=== PATIENT | female | born 1960 | race Caucasian/White ===

== ENCOUNTER 2017-05-12 14:07 | Emergency (ER) | payer BC ==
[2017-05-12 14:16] VITALS: BP 135/79; BMI 25.9
[2017-05-12 15:44] LABS: BASOPHILS # (AUTO) 0.1 X10^3/uL (0.0-0.1); BASOPHILS % (AUTO) 0.9 % (0.2-1.0); EOSINOPHILS # (AUTO) 0.4 x10^3/uL (0.0-0.2); HEMATOCRIT 46.6 % (36.0-47.0); HEMOGLOBIN 16.4 g/dL (12.0-16.0); LYMPHOCYTES # (AUTO) 2.1 X10^3/uL (1.3-2.9); LYMPHOCYTES % (AUTO) 26.3 % (21.0-51.0); MEAN CORPUSCULAR HEMOGLOBIN 32.3 pg (27.0-34.0); MEAN CORPUSCULAR HGB CONC 35.3 g/dL (33.0-35.0); MEAN CORPUSCULAR VOLUME 91.5 fL (80.0-100.0); MEAN PLATELET VOLUME 7.3 fL (7.4-11.0); MONOCYTES # (AUTO) 0.7 x10^3/uL (0.3-0.8); MONOCYTES % (AUTO) 9.3 % (0.0-13.0); NEUTROPHILS # (AUTO) 4.6 x10^3/uL (2.2-4.8); NEUTROPHILS % (AUTO) 58.5 % (42.0-75.0); PLATELET COUNT 273 X10^3/uL (150.0-450.0); RED BLOOD COUNT 5.09 X10^6/uL (3.5-5.4); RED CELL DISTRIBUTION WIDTH 12.9 % (11.6-16.5); WHITE BLOOD COUNT 7.8 X10^3/uL (3.6-10.0)
--- NOTE | 2017-05-12 15:49 | DR.GENAD ---
HPI - PCP Primary Care Physician: NFD - Complaint/Symptoms Chief Complaint Doctors Comments: Patient admits to being put lisinopril for hyprtension and after taking the medication she started getting pain in right thigh. I agree with statement as stated for chief complaint. Chief Complaint:: "NEED TO BE CHECKED FOR BLOOD CLOT. PAIN INSIDE LEG/GROIN AREA ON RIGHT LEG" Self Treatment fo Chief Complaint: WENT TO [facility] - Source History Provided: Patient - Mode of Arrival Mode of Arrival: Ambulatory - Timing Onset of Chief Complaint: 05/05/17 PMH - PMH Past Medical History: Yes Past Medical History: Arthritis, Asthma, Hypertension Past Medical History Comment: I THINK I HAVE ASTHMA AND ARTHITIS Past Surgical History: Yes Surgical History: Cholecystectomy - Family History History of Family Medical Conditions: Yes Family Medical History: Sudden Cardiac Family Medical History Comment: ASTHMA - Social History Does any household member use tobacco: Yes Alcohol Use: Occasionally Do you use any recreational Drugs:: No Lives With: Spouse Lives Where: Home - infectious screening In the last 2 months have you had wt loss of >10#?: NO Have you had fever, night sweats or hemotysis?: No Have you traveled outside the country in the last 6 months?: No Isolation: Standard ROS - Review of Systems Eyes: No Symptoms Reported ENTM: No Symptoms Reported Respiratoy: No Symptoms Reported Cardiovascular: No Symptoms Reported Gastrointestinal/Abdominal: No Symptoms Reported Genitourinary: No Symptoms Reported Neurological: No Symptoms Reported Musculoskeletal: No Symptoms Reported Integumentary: No Symptoms Reported Hematologic/Lymphatic: No Symptoms Reported Endocrine: No Symptoms Reported Psychiatric: No Symptoms Reported All Other Systems: Reviewed and Negative PE - Vital Signs Vitals: Temperature 98.3 F Pulse Rate 82 Respiratory Rate 20 Blood Pressure 135/79 O2 Sat by Pulse Oximetry 98 - General Limitations: No Limitations General Appearance: Alert, In No Apparent Distress - Head Head Exam: Normal Inspection, Atraumatic - Eyes Eye exam: Normal Appearance, PERRL, EOMI - ENT ENT Exam: Normal Exam External Ear Exam: Normal External Inspection TM/Canal Exam: Bilateral Normal Nose Exam: Normal Nose Exam Mouth Exam: Normal Inspection Throat Exam: Normal Inspection - Neck Neck Exam: Normal Inspection - Chest Chest Inspection: Normal Inspection - Respiratory Respiratory Exam: Normal Lung Sounds Bilat Respiratory Exam: Bilateral Clear to Auscultation - Cardiovascular Cardiovascular Exam: Regular Rate, Normal Rhythm - Abdominal Exam Abdominal Exam: Normal Inspection Abdominal Tenderness: negative: RUQ, RLQ, LUQ, LLQ, Epigastrium, Suprapubic, Diffuse, Mild, Moderate, Severe, Other - Extremities Extremities Exam: Normal Inspection, Full ROM - Back Back Exam: Normal Inspection - Neurologic Neurological Exam: Alert, Oriented X3, CN II-XII Intact Course - Reevaluation 1st: Unchanged ROR - Labs Reviewed Laboratory Results Reviewed?: Yes (D Dimer <100) Result Diagrams: 05/12/17 15:30 05/12/17 15:30 Laboratory: WBC 7.8 X10^3/uL (3.6-10.0) 05/12/17 15: RBC 5.09 X10^6/uL (3.5-5.4) 05/12/17 15: Hgb 16.4 g/dL (12.0-16.0) H 05/12/17 15: Hct 46.6 % (36.0-47.0) 05/12/17 15: MCV 91.5 fL (80.0-100.0) 05/12/17 15: MCH 32.3 pg (27.0-34.0) 05/12/17 15:30 MCHC 35.3 g/dL (33.0-35.0) H 05/12/17 15:30 RDW 12.9 % (11.6-16.5) 05/12/17 15:30 Plt Count 273 X10^3/uL (150.0-450.0) 05/12/17 15: MPV 7.3 fL (7.4-11.0) L 05/12/17 15:30 Neut % 58.5 % (42.0-75.0) 05/12/17 15: Lymph % 26.3 % (21.0-51.0) 05/12/17 15: [place] % 9.3 % (0.0-13.0) 05/12/17 15:30 Eos % 5.0 % (0.9-2.9) H 05/12/17 15: Baso % 0.9 % (0.2-1.0) 05/12/17 15: Neut # 4.6 x10^3/uL (2.2-4.8) 05/12/17 15:30 Lymph # 2.1 X10^3/uL (1.3-2.9) 05/12/17 15:30 [place] # 0.7 x10^3/uL (0.3-0.8) 05/12/17 15:30 Eos # 0.4 x10^3/uL (0.0-0.2) H 05/12/17 15:30 Baso # 0.1 X10^3/uL (0.0-0.1) 05/12/17 15:30 Absolute Nucleated RBC 0.0 /100WBC 05/12/17 15:30 D-Dimer < 100 ng/mL (0-400) 05/12/17 15:30 Sodium 142 mmol/L (136-145) 05/12/17 15:30 Corrected Sodium TNP 05/12/17 15:30 Potassium 4.1 mmol/L (3.5-5.1) 05/12/17 15:30 Chloride 103 mmol/L (98-107) 05/12/17 15:30 Carbon Dioxide 31.0 mmol/L (21-32) 05/12/17 15:30 BUN 11 mg/dL (7-18) 05/12/17 15:30 Creatinine 0.81 mg/dL (0.55-1.02) 05/12/17 15:30 Est GFR (MDRD) Af Amer > 60 (>60) 05/12/17 15:30 Est GFR (MDRD) Non-Af > 60 (>60) 05/12/17 15:30 Glucose 100 mg/dL (65-99) H 05/12/17 15:30 Calcium 10.6 mg/dL (8.5-10.1) H 05/12/17 15:30 Corrected Calcium TNP 05/12/17 15:30 Total Bilirubin 0.70 mg/dL (0.2-1.0) 05/12/17 15:30 AST 23 Units/L (15-37) 05/12/17 15:30 ALT 35 Units/L (12-78) 05/12/17 15:30 Alkaline Phosphatase 101 Units/L (46-116) 05/12/17 15:30 Total Protein 7.9 g/dL (6.4-8.2) 05/12/17 15:30 Albumin 4.4 g/dL (3.4-5.0) 05/12/17 15:30 Globulin 3.5 g/dL (2.5-4.5) 05/12/17 15:30 Albumin/Globulin Ratio 1.3 Ratio (1.1-2.1) 05/12/17 15:30 - Diagnosis Discharge Problem: Myalgia - Discharge Plan Condition: Stable - Follow ups/Referrals Follow ups/Referrals: NFD,None [Primary Care Provider] - 3 days - Instructions
[2017-05-12 15:54] LABS: ALANINE AMINOTRANSFERASE 35 Units/L (12-78); ALBUMIN 4.4 g/dL (3.4-5.0); ALKALINE PHOSPHATASE 101 Units/L (46-116); ASPARTATE AMINO TRANSFERASE 23 Units/L (15-37); BLOOD UREA NITROGEN 11 mg/dL (7-18); CALCIUM 10.6 mg/dL (8.5-10.1); CHLORIDE 103 mmol/L (98-107); CREATININE 0.81 mg/dL (0.55-1.02); GLUCOSE 100 mg/dL (65-99); SODIUM 142 mmol/L (136-145); TOTAL PROTEIN 7.9 g/dL (6.4-8.2); eGFR BLACK RACES > 60 (>60); eGFR NON BLACK RACES > 60 (>60)
[2017-05-12 16:08] LABS: D DIMER < 100 ng/mL (0-400)
== END 2017-05-12 16:55 | disposition home or self-care (01) ==
LOC: ER 14:22
DX: M79.1 Myalgia (principal)
CPT/HCPCS: 36415; 80053; 85025; 85378; 99282; 99283